=== PATIENT | male | born 1965 | race Caucasian/White ===

== ENCOUNTER → 2021-11-05 11:41 | Outpatient (CLI) | payer BC, SELFPAY ==
--- NOTE | ~2021-11-05 | XR_ITS ---
EXAMINATION: XR knee LT min 4V DATE: 11/05/2021 11:53 INDICATION: Synovial cyst of popliteal space. Left knee pain. TECHNIQUE: 4 views of left knee including standing views were obtained. COMPARISON: None. FINDINGS: There is lateral subluxation of tibia with respect to distal femur. No fracture. There is s evere osteoarthritis of medial compartment and mild osteoarthritis of lateral and patellofemoral comp artments. No knee joint effusion. IMPRESSION: 1. Severe left knee osteoarthritis. Reviewed, dictated and finalized at location B.
== END ==
PROVIDERS: PCP Family Medicine; Visit Provider Physician Assistant
DX: M17.12 Unilateral primary osteoarthritis, left knee (principal); M71.22 Synovial cyst of popliteal space [Baker], left knee
CPT/HCPCS: 73564

== ENCOUNTER → 2022-05-10 09:40 | Outpatient (CLI) | payer BC, SELFPAY ==
--- NOTE | ~2022-05-10 | XR_ITS ---
EXAMINATION: XR chest 2V 05/10/2022 09:51 INDICATION: Wheezing and dyspnea PROCEDURE: 2 view chest COMPARISON: Comparison to multiple prior studies sequentially, with oldest reviewed study dated 10/2014. FINDINGS: The lungs are clear. The cardiomediastinal silhouette is within normal limits. There are no pleural effusions. There is no pneumothorax suspected. IMPRESSION: 1: NO ACUTE CARDIOPULMONARY DISEASE. Reviewed, dictated and finalized at location A.
== END ==
PROVIDERS: PCP Family Medicine; Visit Provider Physician Assistant
DX: R06.2 Wheezing (principal)
CPT/HCPCS: 71046

== ENCOUNTER 2023-05-25 20:25 | Emergency (ER) | payer BC, SELFPAY ==
--- NOTE | ~2023-05-25 | CT_ITS ---
Noncontrast CT scan of the cervical spine Technique: Multiple contiguous axial [address] images of the cervical spine were obtained and rec onstructed in 2D sagittal and coronal planes on the acquisition scanner. Dose reduction technique was used on this scan by utilizing automated exposure control, adjustment of the mA and/or kV according to patient size. The dose-length product (DLP) was 361.36 mGy-cm. Clinical History: Pain Findings: No acute fracture identified. There is minimal grade 1 anterolisthesis of C2 over C3. There is minimal grade 1 retrolisthesis of C3 over C4. There is 2 mm anterolisthesis of C4 over C5. There is severe degenerative disc narrowing at C3-C4, C4-C5, C5-C6, and C6-C7. At C2-C3, there is probable minimal left neural foraminal narrowing with mild left facet arthropathy. At C3-C4, there is disc ossify complex with bilateral facet arthropathy and bilateral advanced neural foraminal narrowing. There is probable minimal central canal stenosis. At C4-C5, there is right neural foraminal narrowing, and possible minimal left neural foraminal narro wing, with facet arthropathy. At C5-C6, there is no definite canal stenosis or neural foraminal narrowing. At C6-C7, there is advanced bilateral facet arthropathy. There is minimal bilateral neural foraminal narrowing. No definite canal stenosis. No prevertebral soft tissue swelling. Impression: No acute fracture. Multiple minimal grade 1 listheses in the cervical spine, as detailed above. Moderate degenerative spondylosis, as above. Reviewed, dictated and finalized at [facility]. [employer]UPATIONAL HE[employer] Impression: No acute fracture. Multiple minimal grade 1 listheses in the cervical spine, as detailed above. Moderate degenerative spondylosis, as above.
[2023-05-25 21:01] VITALS: BP 136/95; PULSE 100; RESP 19; TEMP 36.5; O2SAT 97
--- NOTE | 2023-05-25 23:27 | ED.EXTPRO ---
HPI - Extremity Problem General Chief complaint: Extremity Problem,Nontraumatic Stated complaint: Right shoulder pain/neck pain Time Seen by Provider: 05/25/23 23:10 Source: patient Mode of arrival: ambulatory Limitations: no limitations History of Present Illness HPI Narrative: This is a 57 year old male that presents to the ER for right sided neck pain. Reports pain radiating into his shoulder and arm. He has been taking over the counter pain medication with little relief. Denies fever, erythema, edema, or numbness. Related Data Allergies Allergy/AdvReac Type Severity Reaction Status Date / Time amoxicillin Allergy Unknown Fatigue Verified 05/05/23 11:00 Sulfa (Sulfonamide Allergy Unknown Unknown Verified 05/05/23 11:00 Antibiotics) Review of Systems Review of Systems: CONSTITUTIONAL: Denies fever SKIN: Denies rash MUSCULOSKELETAL: Reports joint pain, and myalgia. NEUROLOGIC: Denies numbness, or weakness. 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 Family History Family History Other Diabetes mellitus Social History Social History Years smoked: 15 Smoking status: Never smoker Tobacco type: cigars Second hand tobacco smoke exposure: Yes Alcohol intake: current Drinks per week: 10 Substance use: never Substance use type: does not use Lack of Transportation: No Lack of Food: Never True Current Housing: I Have Housing Concerned About Future Housing: No Difficulty Paying Gas/Electric Bills: No Difficulty Paying for Meds: No Currently Unemployed: No Education: High School Diploma/GED Difficulty w/ Childcare or Family Care: No Living arrangements: with family Occupation/Education: occupation Gender identity (if verbalized by the patient): Male Spiritual care concerns: No Agree to blood products: Yes Exam Narrative: GENERAL: Well-appearing, well-nourished, and in no acute distress. HEAD: Normocephalic, atraumatic. EYES: EOMI. NECK: Supple. No adenopathy or masses. CHEST: Clear to auscultation. No respiratory distress. No wheezes rales or rhonchi HEART: Regular rate and rhythm. No murmur heard. Normal peripheral pulses. EXTREMITIES: Normal range of motion. No edema or erythema. Strength equal in bilateral upper extremities (5/5) SKIN: Warm, dry, no rash. NEURO: No focal deficits. Alert and oriented x3. PSYCH: Normal mood and affect Course Course Emergency Course: Patient was updated on workup and agrees with plan of care Vital Signs Vital signs: Vital Signs Temperature 97.7 F 05/25/23 21:01 Pulse Rate 100 05/25/23 21:01 Respiratory Rate 19 05/25/23 21:01 Blood Pressure 136/95 H 05/25/23 21:01 Pulse Oximetry 97 05/25/23 21:01 Oxygen Delivery Room Air 05/25/23 21:01 Temperature 97.7 F 05/25/23 21:01 Pulse Rate 77 05/26/23 00:58 Respiratory Rate 17 05/26/23 00:58 Blood Pressure 129/82 05/26/23 00:58 Pulse Oximetry 95 05/26/23 00:58 Oxygen Delivery Room Air 05/25/23 21:01 MDM - Extremity (Nontraumatic) MDM Narrative Medical decision making narrative: Patient presents to the emergency department for neck pain ongoing over the last couple of days. Patient is neurologically intact. No recent injuries or trauma. CT scan of the cervical
[2023-05-25] MEDS: diazePAM INJ (*CRX) 10 MG/2 ML SYRINGE 5 MG IM (23:41)
[2023-05-25] MEDS: ACETAMINOPHEN 500 MG TABLET 1000 MG PO (23:42)
--- NOTE | 2023-05-26 00:09 | PC.NURSE ---
Report received from IBETH Nguyen. Assumed care of patient at this time.
--- NOTE | 2023-05-26 00:24 | PC.NURSE ---
Patient taken CT at this time.
[2023-05-26 00:58] VITALS: BP 129/82; PULSE 77; RESP 17; O2SAT 95
[2023-05-26] MEDS: KETOROLAC 30 MG/ML VIAL (*BKC) IM (01:08)
[2023-05-26 01:40] VITALS: BP 131/82; PULSE 76; RESP 17; O2SAT 97
== END 2023-05-26 01:45 | disposition home or self-care (01) ==
PROVIDERS: Emergency Provider Physician Assistant; PCP Family Medicine
DX: M54.2 Cervicalgia (principal); J45.909 Unspecified asthma, uncomplicated; E11.9 Type 2 diabetes mellitus without complications; E78.5 Hyperlipidemia, unspecified; E03.9 Hypothyroidism, unspecified; I10 Essential (primary) hypertension; Z87.891 Personal history of nicotine dependence
CPT/HCPCS: 72125; 96372; 99284; A9270; J1885; J3360

== ENCOUNTER 2023-08-25 15:50 | Emergency (ER) | payer BC, SELFPAY ==
--- NOTE | ~2023-08-25 | CT_ITS ---
EXAMINATION: CT abdomen pelvis w con DATE: 08/25/2023 20:17 INDICATION: Left abdominal pain TECHNIQUE: Computed tomography (CT) of the abdomen and pelvis was performed with 100 mL Omnipaque-350 intravenous contrast. Automated exposure control and iterative reconstruction technique were employe d. The dose-length product was 590.49 mGy-cm. COMPARISON: CT abdomen 01/30/2006; ultrasound abdomen 08/29/2017. FINDINGS: Lower thorax: Unremarkable Liver: Normal. Biliary/Gallbladder: Gallbladder is normal. No bile duct dilation. Pancreas: No mass or duct dilation. Spleen: Normal. Adrenals:No mass. Kidneys: No suspicious mass, obstructing stone, or hydronephrosis. GI tract: Mild distal esophageal and gastric wall edema. Mild diffuse clonic wall edema. No small or large bowel dilation. Normal appendix. Diverticulosis without diverticulitis. Mesentery/Peritoneum: No ascites, mass, or free air. Retroperitoneum: No mass. Pelvis: Pelvic organs are within normal limits. Soft Tissues: Soft tissues and body wall unremarkable. Bones: No acute osseous finding. Lumbar scoliosis. Multilevel severe degenerative disc disease. Mult ilevel degenerative neural foraminal narrowing and central canal narrowing. IMPRESSION: Mild esophagitis/gastritis. Mild diffuse clonic wall edema may reflect infectious, inflammatory, or ischemic colitis. Reviewed, dictated and finalized at location K. [employer]ON[employer] PROFESSOR IMPRESSION: Mild esophagitis/gastritis. Mild diffuse clonic wall edema may reflect infectious, inflammatory, or ischemi c colitis.
[2023-08-25 16:00] VITALS: BP 183/87; PULSE 67; RESP 16; TEMP 37.4; O2SAT 98
[2023-08-25 16:38] VITALS: BP 171/94; O2SAT 100
[2023-08-25 16:46] VITALS: BP 173/89; O2SAT 100
[2023-08-25 17:45] LABS: Basophils Percent Auto 0.4 % (0.2-1.2); Eosinophils Absolute Auto 0.1 K/mm3 (0-0.3); Eosinophils Percent Auto 1.1 % (0-4.4); Hematocrit 45.2 % (42.0-52.0); Hemoglobin 15.3 g/dL (14.0-18.0); Immature Granulocyte Absolute 0.05 K/mm3 (0.00-0.031); Immature Granulocyte Percent A 0.5 % (0-0.5); Immature Platelet Fraction Pct 19.1 % (0.9-11.2); Lymphocytes Absolute Auto 0.95 K/mm3 (0.9-3.2); Lymphocytes Percent Auto 9.5 % (18.3-44.2); Mean Corpuscular HGB Conc 33.8 g/dl (32-36); Mean Corpuscular Hemoglobin 32.5 pg (26-34); Mean Platelet Volume 12.6 fl (7.4-10.4); Monocytes Absolute Auto 0.8 K/mm3 (0.1-0.6); Monocytes Percent Auto 7.8 % (2.6-8.5); Neutrophils Absolute Auto 8.1 K/mm3 (1.3-6.7); Neutrophils Percent Auto 80.7 % (45.5-73.1); Platelet Count Result 183 k/mm3 (150-375); Red Blood Count 4.71 M/mm3 (4.6-6.20); Red Cell Distribution Width 12.6 % (11.5-14.5)
--- NOTE | 2023-08-25 17:58 | ED.ABDPAIN ---
HPI - Abdominal Pain General Chief Complaint: Abdominal Pain Stated Complaint: L SIDED ABD PAIN, DX COLITIS Time Seen by Provider: 08/25/23 17:02 History of Present Illness HPI narrative: 58-year-old male with history of hyperlipidemia, hypertension, recent diagnosis of colitis yesterday reports for evaluation for left-sided abdominal pain since yesterday. Patient states he woke up yesterday morning with left-sided abdominal pain and went to an ER in [place]. He was diagnosed with colitis and sent home with Augmentin and antiemetics. Patient states he has taken 3 doses of the Augmentin without improvement and is having worsening pain today. He reports 1 episode of emesis today with associated nausea. Denies known fever but states feverish with chills and diaphoresis. Denies urinary complaints, chest pain or shortness of breath. Last bowel movement was today and loose. Denies diarrhea constipation. No prior history of abdominal surgeries. Related Data Allergies Allergy/AdvReac Type Severity Reaction Status Date / Time amoxicillin Allergy Unknown Fatigue Verified 06/02/23 15:39 Sulfa (Sulfonamide Allergy Unknown Unknown Verified 06/02/23 15:39 Antibiotics) Review of Systems Review of Systems: CONSTITUTIONAL: Denies fever, chills, or sweats. EYES: Denies visual changes, redness, or discharge. ENT: Denies rhinorrhea, congestion, sore throat, or otalgia. CARDIOVASCULAR: Denies chest pain, palpitations, or edema. RESPIRATORY: Denies cough or dyspnea. GASTROINTESTINAL: See HPI GENITOURINARY: Denies dysuria or hematuria. SKIN: Denies rash or itching. MUSCULOSKELETAL: Denies back pain, joint pain, or myalgia. NEUROLOGIC: Denies headache, numbness, or weakness. PSYCHIATRIC: Denies anxiety or depression. 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 Family History Family History Other Diabetes mellitus Social History Social History Years smoked: 15 Smoking status: Never smoker Tobacco type: cigars Second hand tobacco smoke exposure: Yes Alcohol intake: current Drinks per week: 10 Substance use: never Substance use type: does not use Lack of Transportation: No Lack of Food: Never True Current Housing: I Have Housing Concerned About Future Housing: No Difficulty Paying Gas/Electric Bills: No Difficulty Paying for Meds: No Currently Unemployed: No Education: High School Diploma/GED Difficulty w/ Childcare or Family Care: No Living arrangements: with family Occupation/Education: occupation Gender identity (if verbalized by the patient): Male Spiritual care concerns: No Agree to blood products: Yes Exam Narrative: GENERAL: Nontoxic, NAD, appears to be in pain HEAD: Normocephalic, atraumatic. EYES: PERRLA and EOMI. ENT: Nares clear, no rhinorrhea or epistaxis. Mucous membranes moist. NECK: Supple. CHEST: Clear to auscultation. No respiratory distress. HEART: Regular rate and rhythm. No murmur heard. Normal peripheral pulses. ABDOMEN: Normoactive bowel sounds. Abdomen soft with tenderness in the mid left abdominal region without guarding, rebound or rigidity. No CVA tenderness. EXTREMITIES: Normal range of motion. No edema. SKIN: Warm, dry, no rash. NEURO: No focal deficits. Alert and oriented x3 Course Vital Signs Vital signs: Vital Signs
[2023-08-25] MEDS: ONDANSETRON INJ 4 MG/2 ML VIAL IV PUSH (18:09)
[2023-08-25] MEDS: MORPHINE SULFATE (*CRX) 4 MG/ML INJ IV PUSH (18:09)
[2023-08-25] MEDS: SODIUM CHLORIDE 0.9% IV 1,000 ML 999 ML IV CONT ×2 (18:09→21:36)
[2023-08-25 19:19] LABS: Appearance Urine Clear (Clear); Bilirubin Urine Negative (Negative); Blood Urine Negative (Negative); Color Urine Yellow (Yellow); Glucose Urine UA 3+ mg/dL (Negative); Ketones Urine 4+ mg/dL (Negative); Leukocyte Esterase Ur Negative LEU/UL (Negative); Nitrate Urine Negative (Negative); Protein Urine Negative (Negative); Urobilinogen Urine 0.2 mg/dL (<2.0); pH Urine 5.5 (5.0-9.0)
[2023-08-25 19:27] LABS: Add Urine Microscopic? NO; Specific Grav Ur 1.043 (1.001-1.035)
[2023-08-25 19:57] VITALS: BP 140/79; PULSE 71; RESP 20; TEMP 37.3; O2SAT 100
[2023-08-25 19:57] LABS: Alanine Aminotransferase 26 U/L (6-50); Alkaline Phosphatase 70 U/L (38-126); Anion Gap 11 mmol/L (8-16); Aspartate Amino Transferase 20 U/L (17-59); Bilirubin,Total 0.8 mg/dL (0.2-1.3); Blood Urea Nitrogen 11 mg/dL (9-20); Calcium 8.5 mg/dL (8.4-10.2); Carbon Dioxide 21 mmol/L (22-30); Chloride 104 mmol/L (98-107); Estimated CRCL calculation 103 ml/min; Estimated Glomerular Filt Rate > 60; Glucose 246 mg/dL (65-110); Lipase 221 U/L (23-300); Potassium 4.3 mmol/L (3.4-5.0); Sodium 136 mmol/L (137-145)
[2023-08-25 21:57] LABS: Beta-Hydroxybutyrate/Acetoacetate 3.75 mmol/L (0.02-0.27)
[2023-08-25 22:17] VITALS: BP 148/86; PULSE 88; RESP 20; O2SAT 100
[2023-08-25] MEDS: CIPROFLOXACIN 500 MG TAB PO (22:23)
[2023-08-25] MEDS: metroNIDAZOLE 500 MG TABLET PO (22:23)
== END 2023-08-25 22:31 | disposition home or self-care (01) ==
PROVIDERS: Emergency Provider Physician Assistant; PCP Family Medicine
DX: K52.9 Noninfective gastroenteritis and colitis, unspecified (principal); E86.0 Dehydration; I10 Essential (primary) hypertension; E11.9 Type 2 diabetes mellitus without complications; E78.5 Hyperlipidemia, unspecified; J45.20 Mild intermittent asthma, uncomplicated; M06.9 Rheumatoid arthritis, unspecified; M19.90 Unspecified osteoarthritis, unspecified site; Z87.891 Personal history of nicotine dependence; Z86.14 Personal history of Methicillin resistant Staphylococcus aureus infection; Z79.4 Long term (current) use of insulin; K20.90 Esophagitis, unspecified without bleeding
CPT/HCPCS: 36415; 74177; 80053; 81003; 82010; 83605; 83690; 85025; 85055; 96361; 96374; 96375; 99284; A9270; J2270; J2405; J7030; Q9967

== ENCOUNTER 2023-10-27 07:53 | Outpatient (CLI) | payer BC, SELFPAY ==
--- NOTE | ~2023-10-27 | CT_ITS ---
CT of the Abdomen and Pelvis: Indication: Gastroenteritis/colitis Technique: 2.5 mm axial scans were obtained through the abdomen and pelvis following intravenous adm inistration of 100 cc of Omnipaque 350. Dose reduction technique was used on this scan by utilizing a utomated exposure control and iterative reconstruction technique. The dose-length product (DLP) was 5 76.98 mGy-cm. COMPARISON: 08/25/2023 Findings: Scans through the lung bases are unremarkable. The liver, spleen, pancreas, gallbladder, adrenals and kidneys are within normal limits. No evidence of aortic aneurysm. No lymphadenopathy. No bowel obstruction or bowel wall thickening. There is no evidence to suggest acute appendicitis. Images through the pelvis were performed. Urinary bladder unremarkable. No pelvic mass seen. No ascit es. Impression: No significant abnormalities seen. Reviewed, dictated and finalized at [facility]. Impression: No significant abnormalities seen.
[2023-10-27 08:20] LABS: Estimated Glomerular Filt Rate > 60
== END 2023-10-27 07:54 | disposition home or self-care (01) ==
PROVIDERS: PCP Family Medicine; Visit Provider Physician Assistant Medical
DX: K52.9 Noninfective gastroenteritis and colitis, unspecified (principal)
CPT/HCPCS: 74177; Q9967